=== PATIENT | male | born 1985 | race Caucasian/White ===

== ENCOUNTER 2017-01-30 22:01 | Emergency (ER) | payer OTHER ==
[~2017-01-30] VITALS: Ht 157.5 cm; Wt 71.0 kg
[~2017-01-30 22:01] MED LIST: BACTRIM DS1 TAB PO; CLEOCIN300 MG PO; DOXYCYCL HYC100 M4 PO; LORTAB 5/3255 MG PO; MOTRIN800 MG PO; MUPIROCIN2 % EX; ULTRAM50 M1 PO
[2017-01-30] MEDS ORDERED: PERCOCET 5/325M1 TAB PO (23:14)
[2017-01-30 23:30] VITALS: BP 138/81
== END 2017-01-30 23:45 | DRG 159 ==
LOC: ED 22:01
PROC: 0CQ0XZZ Repair Upper Lip, External Approach (ICD-10-PCS; principal; 2017-01-30)
DX: S01.511A Laceration without foreign body of lip, initial encounter (principal); W18.2XXA Fall in (into) shower or empty bathtub, initial encounter; Y93.E1 Activity, personal bathing and showering; Y92.142 Bathroom in prison as the place of occurrence of the external cause

== ENCOUNTER 2018-12-09 08:52 | Emergency (ER) | payer SELFPAY ==
[~2018-12-09] VITALS: Ht 157.5 cm; Wt 63.6 kg
[~2018-12-09 08:52] MED LIST changes: +PERCOCET 5/325M1 TAB PO
[2018-12-09] MEDS ORDERED: BACTRIM DS1 TAB PO (09:18)
[2018-12-09] MEDS ORDERED: OMNICEF300 M1 PO (09:18)
[2018-12-09 09:40] VITALS: BP 134/95
== END 2018-12-09 09:40 | disposition home or self-care (01) | DRG 603 ==
LOC: ED 08:52
DX: L02.01 Cutaneous abscess of face (principal); F17.210 Nicotine dependence, cigarettes, uncomplicated

== ENCOUNTER 2020-10-19 | Emergency (ER) | payer OTHER ==
[~2020-10-19] MED LIST changes: +OMNICEF300 M1 PO
== END 2020-10-19 23:30 | DRG 605 ==
DX: S00.83XA Contusion of other part of head, initial encounter (principal); F17.200 Nicotine dependence, unspecified, uncomplicated; Y04.0XXA Assault by unarmed brawl or fight, initial encounter; Y92.149 Unspecified place in prison as the place of occurrence of the external cause; Z20.822 Contact with and (suspected) exposure to COVID-19

== ENCOUNTER 2022-12-28 08:31 | Emergency (ER) | payer SELFPAY ==
[~2022-12-28] VITALS: Ht 157.5 cm; Wt 75.0 kg
[2022-12-28 08:38] VITALS: BP 129/88
[2022-12-28 08:40] VITALS: BP 129/94
[2022-12-28 09:00] VITALS: BP 126/85
[2022-12-28 09:20] VITALS: BP 117/81
[2022-12-28] MEDS ORDERED: ZPAK PO (09:35)
[2022-12-28 10:06] VITALS: BP 117/81
== END 2022-12-28 10:06 | disposition home or self-care (01) | DRG 153 ==
LOC: ED 08:31
DX: J06.9 Acute upper respiratory infection, unspecified (principal); F17.200 Nicotine dependence, unspecified, uncomplicated; Z20.822 Contact with and (suspected) exposure to COVID-19

== ENCOUNTER 2023-03-05 09:37 | Emergency (ER) | payer SELFPAY ==
[~2023-03-05] VITALS: Ht 157.5 cm; Wt 68.0 kg
[~2023-03-05 09:37] MED LIST changes: +ZPAK PO
[2023-03-05 10:06] VITALS: BP 120/88
== END 2023-03-05 10:54 | disposition home or self-care (01) | DRG 179 ==
LOC: ED 09:37
DX: U07.1 COVID-19 (principal); R51.9 Headache, unspecified; R52 Pain, unspecified; R05.9 Cough, unspecified; F17.210 Nicotine dependence, cigarettes, uncomplicated

== ENCOUNTER 2023-07-19 12:15 | Emergency (ER) | payer SELFPAY ==
[2023-07-19] VITALS (7 sets, daily range): BP systolic 121–133; BP diastolic 81–93
[~2023-07-19] VITALS: Ht 157.5 cm; Wt 67.0 kg
[~2023-07-19 12:15] MED LIST changes: +CEFDINIR300 MG PO; +KEFLEX500 MG PO; +MUPIROCIN21 TOP
[2023-07-19 13:19] LABS: BASO% 0.5 % (0-3); EOS% 2.9 % (0-8); HEMATOCRIT 48.8 % (39.0-50.0); HEMOGLOBIN 16.4 g/dl (14.0-18.0); IMMATURE GRANULOCYTES 0.2 % (0.0-5.0); LYMPH% 16.7 % (15-41); MEAN CELL VOLUME 88.7 fL CALC (80.0-100.0); MEAN CORPUSCULAR HGB 29.8 pG CALC (26.0-32.0); MEAN CORPUSCULAR HGB CONC 33.6 g/dL CAL (32.0-36.0); MONO% 8.6 % (2-13); NEUT# 7.99 thou/uL (1.82-7.42); NEUT% 71.1 % (42-76); RED BLOOD COUNT 5.5 mill/uL (4.70-6.10)
[2023-07-19 13:30] LABS: ALBUMIN 4.3 g/dL (3.2-5.0); ALKALINE PHOSPHATASE 92 u/l (38-126); ANION GAP 9 (6-22 (CALC)); BILIRUBIN, TOTAL 0.6 mg/dL (0.2-1.3); BUN 11 mg/dL (9-20); BUN/CREATININE RATIO 12 (12-20 (CALC)); C-REACTIVE PROTEIN 4.7 mg/dL (0-0.9); CARBON DIOXIDE 27 mmol/l (22-30); CHLORIDE 107 mmol/l (95-108); CREATININE 0.9 mg/dL (0.7-1.3); GFR FOR AFR.AMER. > 60 ML/MIN (>=60 (CALC)); GFR OTHER RACES > 60 ML/MIN (>=60 (CALC)); POTASSIUM 4.2 mmol/l (3.5-5.1); SGOT/AST 32 u/l (17-59); SODIUM 139 mmol/l (137-146); TOTAL PROTEIN 7.1 g/dL (6.3-8.2)
[2023-07-19] MEDS ORDERED: PREDNISONE20 MG PO (14:30)
[2023-07-19] MEDS ORDERED: METHOCARBAMOL500 MG PO (14:30)
[2023-07-19] MEDS ORDERED: NAPROXEN500 MG PO (14:30)
== END 2023-07-19 14:38 | disposition home or self-care (01) | DRG 563 ==
LOC: ED 12:15
PROVIDERS: Nurse Practitioner
DX: S46.911A Strain of unspecified muscle, fascia and tendon at shoulder and upper arm level, right arm, initial encounter (principal); F17.210 Nicotine dependence, cigarettes, uncomplicated; F17.290 Nicotine dependence, other tobacco product, uncomplicated; X58.XXXA Exposure to other specified factors, initial encounter

== ENCOUNTER 2023-08-22 18:13 | Emergency (ER) | payer SELFPAY ==
[~2023-08-22] VITALS: Ht 157.5 cm; Wt 68.0 kg
[~2023-08-22 18:13] MED LIST changes: +METHOCARBAMOL500 MG PO; +NAPROXEN500 MG PO; +PREDNISONE20 MG PO
[2023-08-22 18:30] VITALS: BP 125/90
[2023-08-23] MEDS ORDERED: PROTONIX40 M2 PO (15:57)
[2023-08-23] MEDS ORDERED: PEPCID20 MG PO (15:57)
== END 2023-08-22 18:40 | disposition left against medical advice (07) | DRG 951 ==
LOC: ED 18:13 → LWOBS 18:39
DX: Z53.21 Procedure and treatment not carried out due to patient leaving prior to being seen by health care provider (principal)

== ENCOUNTER 2023-08-23 13:46 | Emergency (ER) | payer SELFPAY ==
[~2023-08-23] VITALS: Ht 157.5 cm; Wt 68.0 kg
[2023-08-23] VITALS (7 sets, daily range): BP systolic 108–125; BP diastolic 73–81
[2023-08-23 14:43] LABS: URINE BILIRUBIN - DIPSTICK Negative (NEGATIVE); URINE BLOOD DIPSTICK Negative (NEGATIVE); URINE GLUCOSE - DIPSTICK Negative (NEGATIVE); URINE KETONE Negative (NEGATIVE); URINE LEUK ESTERASE Negative (NEGATIVE); URINE NITRITE - DIPSTICK Negative (Negative); URINE PH 6.5 (4.5-8.0); URINE PROTEIN - DIPSTICK Negative (NEG-TRACE); URINE UROBILINOGEN - DIPSTICK 0.2 E.U./dL (0.2)
[2023-08-23 14:45] LABS: BASO% 0.4 % (0-3); EOS% 2.3 % (0-8); HEMATOCRIT 47.6 % (39.0-50.0); HEMOGLOBIN 16.1 g/dl (14.0-18.0); IMMATURE GRANULOCYTES 0.2 % (0.0-5.0); LYMPH% 19.5 % (15-41); MEAN CELL VOLUME 87.7 fL CALC (80.0-100.0); MEAN CORPUSCULAR HGB 29.7 pG CALC (26.0-32.0); MEAN CORPUSCULAR HGB CONC 33.8 g/dL CAL (32.0-36.0); MONO% 7.1 % (2-13); NEUT# 8.18 thou/uL (1.82-7.42); NEUT% 70.5 % (42-76); RED BLOOD COUNT 5.43 mill/uL (4.70-6.10); RED CELL DISTRI WIDTH 12.7 % (11.5-15.5)
[2023-08-23 14:46] LABS: URINE COLOR Yellow
[2023-08-23 15:04] LABS: ALBUMIN 4.6 g/dL (3.2-5.0); ALKALINE PHOSPHATASE 95 u/l (38-126); ANION GAP 9 (6-22 (CALC)); BILIRUBIN, TOTAL 0.5 mg/dL (0.2-1.3); BUN 14 mg/dL (9-20); BUN/CREATININE RATIO 13 (12-20 (CALC)); CARBON DIOXIDE 32 mmol/l (22-30); CHLORIDE 102 mmol/l (95-108); CREATININE 1.1 mg/dL (0.7-1.3); GFR FOR AFR.AMER. > 60 ML/MIN (>=60 (CALC)); GFR OTHER RACES > 60 ML/MIN (>=60 (CALC)); LIPASE 134 u/l (23-300); POTASSIUM 4.2 mmol/l (3.5-5.1); SGOT/AST 33 u/l (17-59); SODIUM 139 mmol/l (137-146); TOTAL PROTEIN 7.1 g/dL (6.3-8.2)
[2023-08-23] MEDS ORDERED: ALUM & MAG HYDROX-SIMETHICONE 30 ML PO ONE (15:15)
[2023-08-23] MEDS ORDERED: FAMOTIDINE 20 MG/TAB PO ONE (15:15)
[2023-08-23] MEDS ORDERED: PANTOPRAZOLE SODIUM Sesquihydr 40 MG/TAB PO ONE (15:15)
[2023-08-23] MEDS ORDERED: LIDOCAINE VISCOUS 2% 15 ML UDC PO ONE (15:20)
[2023-08-23] MEDS ORDERED: PEPCID20 MG PO (15:57)
[2023-08-23] MEDS ORDERED: PROTONIX40 M2 PO (15:57)
== END 2023-08-23 16:14 | disposition home or self-care (01) | DRG 392 ==
LOC: ED 13:46
PROVIDERS: Emergency Medicine
DX: K21.9 Gastro-esophageal reflux disease without esophagitis (principal); F17.210 Nicotine dependence, cigarettes, uncomplicated

== ENCOUNTER 2024-02-11 11:11 | Emergency (ER) | payer OTHER ==
[~2024-02-11] VITALS: Ht 157.5 cm; Wt 68.0 kg
[~2024-02-11 11:11] MED LIST changes: +PEPCID20 MG PO; +PROTONIX40 M2 PO
[2024-02-11] MEDS ORDERED: KETOROLAC TROMETHAMINE 30 MG/ML SDV IM ONE (12:10)
[2024-02-11] MEDS ORDERED: DEXAMETHASONE SOD. PHOSPHATE 10 MG/ML VIAL IM ONE (12:10)
== END 2024-02-11 12:35 | disposition left against medical advice (07) | DRG 563 ==
LOC: ED 11:11
DX: S46.911A Strain of unspecified muscle, fascia and tendon at shoulder and upper arm level, right arm, initial encounter (principal); F17.210 Nicotine dependence, cigarettes, uncomplicated; W22.09XA Striking against other stationary object, initial encounter; Z88.0 Allergy status to penicillin